=== PATIENT | female | born 1965 | race Caucasian/White ===

== ENCOUNTER 2016-08-08 08:30 | Day surgery (SDC) | payer OTHER ==
--- NOTE | ~2016-08-08 | EGD ---
EGD REPORT [facility] [address] [address] NAME: LORA LAZAR : [birth year] STATUS : REG [facility]#: [id number] AGE: 50 ADM/REG DATE : 08/08/16 MR#: [id number] REPORT SERV DATE: 08/08/16 DICTATED BY: STEVE MONTERROSO DATE: 08/08/16 REPORT STATUS : Draft [facility] BY: [facility] DATE: 08/08/16 Endoscopy Center Patient Name: Lora Lazar Date of : 1965 Attending MD: STEVE MONTERROSO, Procedure Date No Time: 08/08/2016 Procedure: Upper EUS Indications: Esophageal deformity on endoscopy/Subepithelial tumor vs. extrinsic compression Referring MD: PAVEL JACOBS MD, JAMES ANDERSON Medicines: Monitored Anesthesia Care Complications: No immediate complications. Estimated blood loss: None. Procedure: Pre-Anesthesia Assessment: - ASA Grade Assessment: III - A patient with severe systemic disease. After obtaining informed consent, the endoscope was passed under direct vision. Throughout the procedure, the patient's blood pressure, pulse, and oxygen saturations were monitored continuously. The Endoscope was introduced through the mouth, and advanced to the second part of duodenum. The GIF [id number] was introduced through the mouth, and advanced to the second part of duodenum. Findings: Endoscopic Finding : A single medium-sized nodule with a localized distribution was found in the middle third of the esophagus. The exam of the esophagus was otherwise normal. A few diminutive sessile polyps were found in the gastric body. The cardia and gastric fundus were normal on retroflexion. The exam of the stomach was otherwise normal. The examined duodenum was endoscopically normal. Endosonographic Finding : An oval intramural (subepithelial) lesion was found in the middle third of the esophagus. It was encountered at 25 cm from the incisors and extended to 26 cm. The lesion was hypoechoic. Sonographically, the origin appeared to be within the muscularis propria (Layer 4). The mass measured up to 20 mm in thickness. The endosonographic borders were well-defined. Fine needle aspiration was performed. Color Doppler imaging was utilized prior to needle puncture to confirm a lack of significant vascular structures within the needle path. Four passes were made with the 22 gauge needle using a transesophageal approach. No stylet was used. A preliminary cytologic examination was not performed. Final cytology results are pending. EGD REPORT [address] [address] NAME: LORA LAZAR : [birth year] [place]US : [place] [facility] [place] [id number] AGE: 50 ADM/REG DATE : 08/08/16 MR#: [id number] REPORT SERV DATE: 08/08/16 DICTATED BY: STEVE MONTERROSO DATE: 08/08/16 REPORT STATUS : Draft TRANSCRIBED BY: [facility] DATE: 08/08/16 No lymphadenopathy seen. There was no sign of significant endosonographic abnormality in the entire pancreas. The pancreas was well visualized, no pathologic lymphadenopathy, no masses, no calcifications, the pancreatic duct was well visualized from ampulla to tail, the pancreatic duct was regular in contour. There was no sign of significant endosonographic abnormality in the common bile duct. There was no sign of significant endosonographic abnormality in the examined duodenum. Endosonographic images of the stomach were unremarkable. Impression: - Nodule found in the esophagus. - A few gastric polyps. - Normal examined duodenum. - An intramural (subepithelial) lesion was found in the middle third of the esophagus. It appeared to originate from within the muscularis propria (Layer 4). The diagnosis is a stromal cell (smooth muscle) neoplasm. - There was no sign of significant pathology in the entire pancreas. - There was no sign of significant pathology in the common bile duct. - There was no sign of significant pathology in the examined duodenum. - Endosonographic images of the stomach were unremarkable. Recommendation: - Return to previous diet. - Continue present medications. - Await path results. - Repeat the upper endoscopic ultrasound in 1 year for surveillance. Procedure Code(s): --- Professional --- 98397, Esophagogastroduodenoscopy, flexible, transoral; with transendoscopic ultrasound-guided intramural or transmural fine needle aspiration/biopsy(s) (includes endoscopic ultrasound examination of the esophagus, stomach, and either the duodenum or a surgically altered stomach where the jejunum is examined distal to the anastomosis) Diagnosis Code(s): --- Professional --- K22.8, Other specified diseases of esophagus K31.7, Polyp of stomach and duodenum D49.0, Neoplasm of unspecified behavior of digestive EGD REPORT [facility] [address] [place]. [address] NAME: LORA LAZAR : 67 STATUS : REG [facility]#: [id number] AGE: 50 ADM/REG DATE : 08/08/16 MR#: [id number] REPORT SERV DATE: 08/08/16 DICTATED BY: STEVE MONTERROSO DATE: 08/08/16 REPORT STATUS : Draft TRANSCRIBED BY: [employer] DATE: 08/08/16 system K22.9, Disease of esophagus, unspecified CPT copyright 2013 [employer]. All rights reserved. The codes documented in this report are preliminary and upon gizzard skin remover review may be revised to meet current compliance requirements. STEVE MONTERROSO, 08/08/2016 9:53 AM Number of Addenda: 0 Note Initiated On: 08/08/2016 9:23 AM [address] [place] [address]
[~2016-08-08 08:30] MED LIST: PRILO PO; SUDAFED 12HR120 MG PO; TRAZODONE150 MG PO; ZESTRIL10 MG PO; ZOL50 PO
== END 2016-08-08 23:59 | disposition home or self-care (01) ==
LOC: DMU 08:30
PROVIDERS: Internal Medicine Gastroenterology
PROC: BD41ZZZ Ultrasonography of Esophagus (ICD-10-PCS; 2016-08-08)
PROC: 0DB28ZX Excision of Middle Esophagus, Via Natural or Artificial Opening Endoscopic, Diagnostic (ICD-10-PCS; principal; 2016-08-08 10:30)
DX: D13.0 Benign neoplasm of esophagus (principal); K31.7 Polyp of stomach and duodenum; K21.9 Gastro-esophageal reflux disease without esophagitis; I10 Essential (primary) hypertension; Z88.6 Allergy status to analgesic agent; Z79.899 Other long term (current) drug therapy; Z90.49 Acquired absence of other specified parts of digestive tract; Z90.710 Acquired absence of both cervix and uterus; Z98.890 Other specified postprocedural states
CPT/HCPCS: 88305; 88341; 88342